=== PATIENT | male | born 1950 | race African-American/Black ===

== ENCOUNTER 2017-05-18 22:51 | Inpatient (IN) | payer OTHER ==
[~2017-05-18] VITALS: Ht 180.3 cm; Wt 88.1 kg
--- NOTE | ~2017-05-18 | CO ---
Unit #: [id number] #: [id number] Patient: BONILLA VAUGHAN [id number] [facility] [address]. [place], [place] [address] [id number] I MR#: [id number] NAME: BONILLA VAUGHAN ROOM: CIC3 Age: 66 Sex: M Admission Date: 05/19/2017 : 1950 Attending Physician: Elsa Arambula M.D. Primary Care Physician: Ezio Arambula M.D. Consultation Date: 05/19/2017 CONSULTATION REPORT PRIMARY CARE PHYSICIAN Ezio Arambula M.D. REASON FOR CONSULT Seizures. PATIENT IDENTIFICATION This is a 66-year-old male evaluated in room ICU 21 at [facility]. SOURCE OF INFORMATION Obtained from the medical record and prior evaluation. HISTORY OF PRESENT ILLNESS This is a 66-year-old, male with a past medical history of stroke and dementia with behavioral disturbance, substance abuse, who presents to [facility] with new onset seizures recurrent. He required Versed and intubation in the ER. At baseline, he is essentially nonverbal. He is intubated at this time, so I am unable to obtain history from the patient. According to the ER notes, [facility]. Here, he was having recurrent events. He required 10 mg of Versed and was intubated. He received 1 g of IV Keppra and 200 mg of IV Vimpat. He also received multiple milligrams of IV Ativan. He was started on continuous Keppra b.i.d. and Vimpat b.i.d. and admitted to the ICU. He is not currently seizing at this time. He is withdrawing from noxious stimuli. He opens his eyes. Moves all extremities, but does not follow commands. He does not appear to have any new focal findings, no dysconjugate gaze or gaze deviation. CT of the head without contrast done in the ER shows no acute intracranial abnormality with stable diffuse chronic changes and old infarcts in multiple areas. No change since 08/2016. There is increasing fluid opacification of the left mastoid air spaces. Chest x-ray shows a left lung base infiltrate. PAST MEDICAL HISTORY 1. Multiple strokes. The patient has been seen by Neurology in the past as recently as 08/2016 for subacute infarct in the left posterior cerebral artery territory. MRI of the brain from 08/2016 showed multifocal small to moderate size bilateral recent ischemic infarcts in the bilateral occipital lobes, left cerebellar hemisphere, in the conrado, and in the posterior frontal lobes bilaterally. Prior CT of the head without contrast shows areas of concern in the left temporal lobe. He was treated in 07/2016 as well by Neurology for altered mental status. 2. Dementia with behavioral disturbance. Unit #: [id number] #: [id number] Patient: BONILLA VAUGHAN 3. Hypertension. 4. Cocaine abuse in the past. 5. Delirium. 6. [facility] of the [facility]. 7. Superficial gastric ulceration in the past. 8. Dysphagia, status post PEG. ALLERGIES No known drug allergies. FAMILY HISTORY Unknown. SOCIAL HISTORY [facility] He is a wolf of the [facility]. He has a past history of drug abuse specifically cocaine. No known current drug use, tobacco use, or alcohol use. HOME MEDICATIONS As per med rec include; Lopressor, Catapres, Mucinex D, Pepcid AC, aspirin, Plavix, Feosol, Catapres, multivitamin, sertraline, milk of magnesia. REVIEW OF SYSTEMS Unable to obtain from the patient given his mental status and intubation. PHYSICAL EXAMINATION VITAL SIGNS: Temperature 99.1, pulse 92, respirations 18, blood pressure 138/94, repeat 174/101, oxygen saturation 100%. Height 5 feet 11 inches, weight 191 pounds, BMI 26. NEUROLOGIC: The patient is intubated. He is sedated at the time of evaluation on a Versed drip 4 mg/hour. He does open his eyes to stimulation and moves all extremities. He withdraws. He does not follow commands. At baseline, he is apparently nonverbal. Unable to assess speech or cognition further as he is intubated and sedated. Cranial nerve exam; he responds to threats in the primary visual amado. Eyes are conjugate without ptosis or nystagmus. Oculocephalic reflex was unremarkable for any abnormality. Unable to evaluate sensation of face and scalp or strength of muscles of facial expression. No asymmetry is seen. Head turning is unremarkable spontaneously. Neck is supple. Motor exam; the patient withdraws from noxious stimuli. Moves extremities spontaneously with stimulation. He appears to have decreased movement on the left side, some possible spasticity of the left upper extremity. Sensory exam; he withdraws from noxious stimuli. Gait and Romberg deferred. Reflexes, unable to elicit. Toes are equivocal. Coordination, unable to assess. DIAGNOSTIC STUDIES Please see above. LABORATORY RESULTS: Lactic acid 1.9 and 2.1. Urine tox screen positive for benzodiazepines, which he received in the ED. Urinalysis shows 3+ protein, 1 urobilinogen, 2 to 5 grain cast, negative for bacteria, 2 to 5 white cells. Culture not indicated. White blood cell count 11.3, hemoglobin 15.3, hematocrit 47.9, platelet count 156. Sodium 142, potassium 4, chloride 108, CO2 is 26, glucose 143, BUN 28, creatinine 1, estimated GFR 91.8, calcium 9.3, AST 35, ALT 42, alkaline phosphatase 113, total protein 8.8, albumin 4.4, alcohol less than 5. Initial troponin Unit #: [id number] #: [id number] Patient: BONILLA VAUGHAN 0.05. IMPRESSION 1. Recurrent seizures, clinically stable possibly secondary to prior strokes. He is not in status epilepticus. We will evaluate closely. At this time, nothing to suggest PROTECTIVE SIGNAL REPAIRER HELPER infection, but we will consider lumbar puncture if needed. He has very mild leukocytosis with a white count of 11.3, and no significantly elevated temperature. He has no meningismus. 2. Prior strokes. 3. Dementia. 4. Coronary artery disease. 5. Questionable aspiration pneumonia. PLAN We will continue Vimpat and Keppra. We will check an MRI of the brain per seizure protocol and we will follow up closely. Again, further plan and testing including lumbar puncture if needed or indicated as we go along at this time that is lower on the differential diagnosis given assessment and evaluation. Case discussed with Dr. Manzanares, who has seen the patient and agrees to the above. We will continue home medications including aspirin and Plavix. We will also look back and review prior records in and given his prior strokes, his workup was regarding anticoagulation versus antiplatelet therapy. Please call for any questions or issues. We thank you very much for allowing us to assist in the care of this patient. Dictated by... Jazmin S. Mio, A.Azucena Villalobos/jovani TD: 05/20/2017 12:35 JOB #: [id number] CONSULTATION REPORT Page 1 of 1 X Jazmin Lieberman APRN CONSULTATION REPORT
--- NOTE | ~2017-05-18 | CT71 ---
[facility] A Service of [facility] RADIOLOGY TEXT RESULTS PATIENT: BONILLA VAUGHAN [facility] : [birth year] UNIT #: [id number] AGE: [address]: Elsa Arambula MD SEX: M ORDER DR: [id number] [facility] [address] [place], [place] [address] [id number] I MR#: [id number] #: [id number] NAME: BONILLA VAUGHAN : 1950 SEX: M STUDY DATE/TIME: 05/18/2017 23:09 UNIT: [facility] ROOM: [facility] STUDY DESCRIPTION: CT Head Wo Contrast Attending Physician: Elsa Arambula M.D. Ordering Physician: Cody Ibrahim D.O. Primary Care Physician: Ezio Arambula M.D. MEDICAL IMAGING REPORT This report is preliminary unless electronic signature is present EXAM CT head, noncontrast, 05/18/2017 HISTORY 66-year-old male in the ED after a seizure tonight. Unresponsive/unconscious. TECHNIQUE CT examination of the head without IV contrast. This CT exam was performed with one or more of the following radiation dose reduction techniques: automatic exposure control, adjustment of mA and/or kV according to patient size, and iterative reconstruction. COMPARISON CT head, 08/12/2016 FINDINGS No acute intracranial abnormality is identified. Advanced generalized cerebral atrophy with disproportionate enlargement of the ventricles. Old cortical infarcts in the right frontal lobe and left occipital lobe and left cerebellum. Diffuse low-attenuation white matter changes are nonspecific but likely related to chronic small vessel disease. No evidence of intracranial hemorrhage, mass, mass effect, acute cerebral edema or progressive ventricular enlargement. There has been no significant change since the prior exam. Extensive fluid opacification of left mastoid airspaces, increasing since the prior study. IMPRESSION [facility] A Service of [facility] RADIOLOGY TEXT RESULTS PATIENT: BONILLA VAUGHAN [facility] : [birth year] UNIT #: [id number] AGE: [address]: Elsa Arambula MD SEX: M ORDER DR: 1. No acute intracranial abnormality is identified. 2. Stable diffuse chronic changes as noted above. 3. Old infarcts in the right frontal lobe, left occipital lobe and left cerebellum. 4. No change since 08/12/2016. 5. Increasing fluid opacification of left mastoid airspaces. Dictated by... Chino Medrano M.D. THIS IS AN ELECTRONICALLY VERIFIED REPORT Chino Medrano M.D. at 05/19/2017 10:02 PM Sunny TD: 05/19/2017 10:18 JOB #: [id number] MEDICAL IMAGING REPORT Page 1 of 1 COPY
--- NOTE | ~2017-05-18 | HP ---
Unit #: [id number] #: [id number] Patient: BONILLA VAUGHAN [id number] [address] [place], [place] [address] [id number] I MR#: [id number] NAME: BONILLA VAUGHAN ROOM: [facility] Age: 66 Sex: M Admission Date: 05/19/2017 : 1950 Attending Physician: Elsa Arambula M.D. Primary Care Physician: Ezio Arambula M.D. HISTORY AND PHYSICAL CHIEF COMPLAINT Seizures. HISTORY OF PRESENTING ILLNESS 66-year-old male with multiple medical problems who has had stroke in the past, is nonverbal, is intubated at this time. Most of the history was taken from ER notes. [facility] is a [facility] resident. He has a history of polysubstance abuse in the past. He has had multiple CVAs in the past. Patient had intractable seizures for 40 minutes or so in the [facility], was transferred to ER. Patient was intubated. Seizures are under control at this time. Patient was started on IV Keppra and IV Vimpat and was transferred to ICU. Patient is being evaluated in room 21. PAST MEDICAL HISTORY 1. History of multifocal strokes. 2. History of dysphagia, status post PEG. 3. History of superficial gastric ulceration in the past. 4. History of chronic anticoagulation therapy with Plavix and aspirin. 5. History of mood disorder and behavior disorder. 6. History of hypertension. ALLERGIES No known drug allergies. FAMILY HISTORY Unknown. SOCIAL HISTORY [facility] is a [facility] and he is a angel of [facility]. He has a past history of drug abuse. No history of alcohol use or tobacco use. REVIEW OF SYMPTOMS Not obtainable. PAST SURGICAL HISTORY What I know is PEG placement in the past. MEDICATIONS Home medications are: 1. Lopressor 100 mg twice a day. 2. Catapres 0.1 mg twice a day. 3. Mucinex p.r.n. 4. Pepcid 20 mg daily. 5. Aspirin 81 mg daily. Unit #: [id number] #: [id number] Patient: BONILLA VAUGHAN 6. Plavix 75 mg daily. 7. Feosol 325 mg daily. 8. Catapres one patch q.7 days. 9. Zoloft 50 mg daily. 10. Milk of mag 30 mL p.r.n. for constipation. PHYSICAL EXAMINATION GENERAL: The patient is evaluated again in ICU room 21. Patient is intubated. VITAL SIGNS: Blood pressure is 160/99, respiratory rate 18, pulse is 92, temperature 99.1. T-max is 100. Oxygen saturation of 100%. HEENT: Head is normocephalic. Eyes - pupils are small. NECK: Supple. CHEST: Fair air entry, decreased at the bases. A few crackles are heard. CVS: S1 and S2 positive. Regular rhythm. ABDOMEN: Soft. PEG tube is in place. No redness or discharge around the PEG tube. Bowel sounds are positive. EXTREMITIES: Negative edema. Pulses are palpable. Patient does have multiple contractures. SENIOR GOVERNMENT PROGRAM ANALYST: Patient is intubated and sedated at this time. DIAGNOSTIC STUDIES LABORATORY: Lab workup done so far shows troponin is less than 0.05, sodium 142, potassium 4.0, chloride 108, BUN 28, creatinine 1.0, ALT 42, alkaline phos. 113, alcohol less than 5. WBC 11.3, hemoglobin 15.3, hematocrit 47.9 and platelet count of 556. Urinalysis shows 3+ protein. Urine drug screen is positive for benzodiazepine. Lactic acid is 2.1. ASSESSMENT AND PLAN Patient is being admitted to Intensive Care Unit with diagnosis of: 1. New onset intractable seizures, stable at this time. 2. Acute hypoxic respiratory failure, on ventilator support. 3. Possible aspiration pneumonia. 4. History of multiple CVAs in the past, patient is nonverbal. 5. History of coronary artery disease, history of OH in September 2016. 6. History of polysubstance abuse. 7. History of hypertension. PLAN Admit to Intensive Care Unit. Patient is being started on IV Keppra and IV Vimpat. IV Ativan on p.r.n. basis. Dr. Manzanares has been consulted. Dr. Perry and Dr. Ceron will be consulted for vent management. Patient could have aspiration pneumonia. Patient is being started on IV Zosyn at this time. Sputum for gram stain and culture is being done. Blood cultures will be done. Urine culture has been sent. Tube feeds will be started. Home medications will be reviewed and adjusted. Dictated by Elsa Arambula M.D. Unit #: [id number] #: [id number] Patient: BONILLA VAUGHAN MISSAEL/petey TD: 05/19/2017 11:03 JOB #: [id number] HISTORY AND PHYSICAL Page 1 of 1 X Elsa Arambula MD X HISTORY AND PHYSICAL
--- NOTE | ~2017-05-18 | EKG ---
PATIENT: BONILLA VAUGHAN UNIT #: [id number] Ventricular Rate: 95 BPM Atrial Rate: 95 BPM P-R Interval: 168 ms QRS Duration: 88 ms Q-T Interval: 370 ms QTC Calculation(Bezet): 464 ms P [place]: 74 degrees Calculated R [place]: -51 degrees Calculated T [place]: 65 degrees Diagnosis Line: Normal sinus rhythm Diagnosis Line: Left axis deviation Diagnosis Line: Abnormal ECG Diagnosis Line: When compared with ECG of 15-AUG-2016 05:58, Diagnosis Line: QRS axis Shifted left Diagnosis Line: T wave inversion no longer evident in Inferior Diagnosis Line: leads Diagnosis Line: Confirmed by ELYSE AG MD ([id number]) on 05/19/2017 Diagnosis Line: 11:05:18 PM INTERPRETING MD: KIMBERLI NATH
--- NOTE | ~2017-05-18 | A ---
[facility] Nutrition Therapy DATE: 05/19/17 Patient: BONILLA VAUGHAN Physician: TAMIKA Address: [facility] Room/Bed: [address], Zip: [place] [address] Admit Date: 05/19/17 Date of : [birth year] Height: 5 11 Weight: 191 87 NUTRITIONAL ASSESSMENT: REASON: TF diet order Admitting dx: 66 y/o male admitted from [facility] with new onset seizure PMH: dysphagia s/p PEG, dementia, CVA, HTN, cocaine abuse, mood disorder No updated H&P available yet Anthropometrics: Ht: 71", Wt: 70.5 vs 87 kg (avg = 78.8 kg), BMI: 21.7 vs 26.8 (normal vs overweight) past weights: 67.5-79 kg 05/18 Labs: glucose 143, BUN 28, ALT 42 Meds: keppra, pepcid, versed, IV abx I/O & Bowel function: Last BM unknown, + PEG Skin Integrity: No significant issues, no edema Estimated Nutrition Needs: 7464-8875 kcals/day (22-27 kcals/kg average weights) 79-95 g protein/day (1-1.2 g/kg average weights) Fluids consistent with kcal needs or per MD Assessment: Chart reviewed, events noted. See admitting dx and PMH as stated above. Pt is now on 2L nasal cannula per RN. See conflicting weights above; average of weights used to estimate nutritional needs. RD previously assessed on 08/11/16; note reviewed. Current EN regimen at shelter is Isosource 1.5 @ 65 ml/hr. Equivalent formula here at [facility] is Osmolite. Pt does not have EN running at this time, see recs below. Of note, the patient is non-verbal and is therefore not appropriate for RD interview. During last admission pt was noted to be on pureed diet at shelter, however this was before his PEG was placed. It is not clear whether he is able to take any food PO at this time, but I believe he is now NPO at shelter based on the above EN regimen. Will follow. Dx: Inadequate energy intake r/t nutrition not yet initiated AEB NPO, need for EN. Intervention: EN recs as stated below Monitoring, Evaluation and Goals: 1. EN consistent with estimated nutritional needs. [facility] Nutrition Therapy DATE: 05/19/17 Patient: BONILLA VAUGHAN Physician: TAMIKA Address: [facility] Room/Bed: [facility] [facility], Zip: [place] [address] Admit Date: 05/19/17 Date of : [birth year] Height: 5 11 Weight: 191 87 2. Promote regular BM's. Monitor: per protocol, criteria to determine if above goals met Recommendations: 1. Once medically feasible start enteral nutrition via PEG with Osmolite 1.5 @ 20 ml/hr and increase by 10 ml q 4 hours until goal rate of 60 ml/hr is reached, to provide 1440 ml, 2160 kcals, 90 g protein and 1094 ml water. Once at goal rate flush with 175 ml free water q 4 hours or per MD. This enteral nutrition regimen will provide 100% of the patients estimated nutritional needs. 2. PO diet per ANIMAL HUSBANDRY TECHNICIAN only if appropriate, unless patient is normally NPO at the shelter. 3. Please obtain an accurate weight; weight differed by 17 kg between yesterday and today per [employer] weights. RD will follow hospital course Moderate nutrition risk Respectfully, Lisa Mtz, [facility], LD Food and Nutritional Services [facility] cc: client file
--- NOTE | ~2017-05-18 | DS ---
Unit #: [id number] #: [id number] Patient: BONILLA VAUGHAN [id number] [address] [place], [place] [address] [id number] I MR#: [id number] NAME: BONILLA VAUGHAN ROOM: [facility] Age: 66 Sex: M Admission Date: 05/19/2017 : 1950 Discharge Date: 05/25/2017 Attending Physician: Elsa Arambula M.D. Primary Care Physician: Ezio Arambula M.D. DISCHARGE SUMMARY FINAL DIAGNOSES 1. Acute hypoxic respiratory failure. 2. Klebsiella pneumoniae. 3. C-diff infection. 4. History of CVA. 5. History of seizure disorder. 6. Hypertension. 7. Chronic anticoagulation therapy with Plavix and aspirin. 8. Mood disorder and behavior disorder. 9. History of dysphagia, status post PEG. 10. History of cocaine abuse in the past. 11. Dementia. CONSULTANTS Dr. Stefany Ceron from pulmonary services. Dr. Manzanares from neurology services. DIAGNOSTIC DATA LABORATORY: TSH 2.46, troponin 0.04. Blood culture done on 05/19/2017 is negative. Sodium 141, potassium 3.6, chloride 106, BUN 19, creatinine 0.8, liver enzymes are normal. CBC shows white blood cell count 6.9, hemoglobin 12.3, hematocrit 37.9, and platelets 143. C-diff is positive. One blood culture on 05/19/2017 showed diphtheroid most likely skin contaminant. Sputum culture positive for Klebsiella pneumoniae. IMAGING: Significant radiological studies done in the hospital were CT scan of the head without contrast on admission which shows no acute intracranial abnormality identified. Advanced generalized cerebral atrophy. Old cortical infarct. Chest x-ray showed left lung base infiltrate. MRI of the brain shows atrophy with extensive chronic ischemic changes and multiple old infarcts. All stable since the previous exam. DISCHARGE MEDICATIONS 1. Vimpat 100 mg q.12 h. 2. Keppra 500 mg q.12 h. 3. Zoloft 15 mg daily. 4. Lopressor 100 mg q.12 h. 5. Milk of Magnesia 30 ml daily p.r.n. constipation. 6. Omnicef 300 mg b.i.d. until 05/28/2017. 7. Catapres 0.1 mg per G tube b.i.d. 8. Zestril 20 mg daily. Unit #: [id number] #: [id number] Patient: BONILLA VAUGHAN 9. Ferrous sulfate 325 mg daily. 10. Metronidazole 500 mg t.i.d. 11. Pepcid 20 mg daily. 12. Florastor 250 mg b.i.d. 13. Multivitamin daily. 14. Aspirin 81 mg daily. 15. Plavix 75 mg daily. Please note the patient will need Metronidazole to be continued for two weeks from the last day of antibiotic, Omnicef, which is 05/28/2017. HOSPITAL COURSE Mr. Vaughan is a 66-year-old male who is a resident [facility]. He has had multiple admissions. Came because the patient had intractable seizures for 40 minutes or so in the detention. Was transferred to ER. The patient was admitted to the ICU. He was intubated. The patient was seen by Dr. Manzanares from neurology services. Most likely this is secondary to prior stroke. The patient was started on Keppra and Vimpat and that will need to be continued. The patient may need an appointment with neurologist as outpatient. The patient is stable on these medications at this time. The patient also had acute hypoxic respiratory failure and pneumonia was diagnosed. Dr. Ceron was consulted. The patient was stated on IV antibiotics. These antibiotics have been changed to p.o. The patient's sputum culture grew Klebsiella pneumoniae. The patient will continue Omnicef for three more days or so. The patient was also diagnosed with c-diff infection. Started on Flagyl and that needs to be continued for two weeks after the last dose of Omnicef. The patient is stable. He is being discharged back to the detention in stable condition. PHYSICAL EXAMINATION VITALS: On discharge, blood pressure is 162/93, respiratory rate 18, pulse 68, temperature 98.9, oxygen saturation 96%. CHEST: Decreased air entry bilaterally. HEART: S1 and S2 positive. Regular rhythm. ABDOMEN: Soft. EXTREMITIES: Edema trace. The patient is awake. DISCHARGE INSTRUCTIONS 1. The patient is being discharged to the detention in stable condition. 2. Medication as per medication reconciliation. 3. Dr. Gu to follow the patient at the detention. 4. Continue Flagyl for two weeks after completing the course of antibiotic, Omnicef. Dictated by... Azucena Hampton/gz TD: 05/25/2017 13:34 JOB #: [id number] Unit #: [id number] #: [id number] Patient: BONILLA VAUGHAN DISCHARGE SUMMARY Page 1 of 1 X Elsa Arambula MD X DISCHARGE SUMMARY
--- NOTE | ~2017-05-18 | MR17 ---
[facility] A Service of [facility] RADIOLOGY TEXT RESULTS PATIENT: BONILLA VAUGHAN LOCATION: [address] : [birth year] UNIT #: [id number] AGE: [address]: Elsa Arambula MD SEX: M ORDER DR: [id number] [facility] [address] [facility]. [place], [place] [address] [id number] I MR#: [id number] Acc #: [id number] NAME: BONILLA VAUGHAN : 1950 SEX: M STUDY DATE/TIME: 05/19/2017 16:52 UNIT: [facility] ROOM: [facility] STUDY DESCRIPTION: MR Brain WWo Contrast Attending Physician: Elsa Arambula M.D. Ordering Physician: Elsa Arambula M.D. Primary Care Physician: Ezio Arambula M.D. MRI CENTER REPORT This report is preliminary unless electronic signature is present. EXAM MRI with and without contrast. COMPARISON 08/13/2016. HISTORY New onset of seizure in the care home. History of chronic dementia. Multiple strokes in the past. Seizures of acute onset recently. TECHNIQUE Multiplanar imaging of the brain was performed with without contrast. 18 mL of MultiHance was used. FINDINGS On diffusion weighted images there is no evidence of abnormal restricted diffusion to suggest a recent infarct. The routine brain images show atrophy with extensive periventricular chronic ischemic disease. There is no evidence of mass lesion, hemorrhage or edema. No abnormal enhancement is seen on the postcontrast images. Extraaxial structures are remarkable for bilateral mastoid inflammatory disease much worse on the left than on the right. This shows worsening on both sides since the previous MRI. IMPRESSION 1. Atrophy with extensive chronic ischemic changes and multiple old infarct, all stable since the previous exam. No evidence of recent infarct, mass lesion or hemorrhage. 2. Bilateral mastoid air cell inflammatory disease, left worse than right, with both sides showing worsening since the previous scan in 2016. Dictated by... Chris Pendleton M.D. [facility] A Service of [facility] RADIOLOGY TEXT RESULTS PATIENT: BONILLA VAUGHAN LOCATION: [facility]3-21 : 52 UNIT #: [id number] AGE: [address]: Elsa Arambula MD SEX: M ORDER DR: THIS IS AN ELECTRONICALLY VERIFIED REPORT Chris Pendleton M.D. at 05/20/2017 3:03 PM RLLeah/john TD: 05/20/2017 10:41 JOB #: [id number] MRI CENTER REPORT Page 1 of 1 COPY
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
--- NOTE | ~2017-05-18 | CR72 ---
[facility] A Service of [facility] RADIOLOGY TEXT RESULTS PATIENT: BONILLA VAUGHAN [facility] [birth year] UNIT #: [id number] AGE: [address]: Elsa Arambula MD SEX: M ORDER DR: [id number] [facility] [address] [facility]. [place], [place] [address] [id number] I MR#: [id number] Acc #: [id number] NAME: BONILLA VAUGHAN : 1950 SEX: M STUDY DATE/TIME: 05/18/2017 23:49 UNIT: [facility] ROOM: [facility] STUDY DESCRIPTION: CR Chest Single View Portable Attending Physician: Elsa Arambula M.D. Ordering Physician: Cody Ibrahim D.O. Primary Care Physician: Ezio Arambula M.D. MEDICAL IMAGING REPORT This report is preliminary unless electronic signature is present EXAM Chest x-ray, 05/18/2017. HISTORY 66-year-old male in the ED with status epilepticus. New onset seizure today. Intubated and unresponsive. TECHNIQUE AP portable chest x-ray. FINDINGS Endotracheal tube in good position with tip about 5 cm above the singh in the mid thoracic trachea. Dense infiltrate in the left lower lobe. Given the history, aspiration pneumonitis is a consideration. Remaining portions of both lungs are clear. Shallow lung expansion. Heart size and pulmonary vascularity are normal. Old healed left rib fractures. IMPRESSION 1. ETT in good position. 2. Left lung base infiltrate. Dictated by... Chino Medrano M.D. THIS IS AN ELECTRONICALLY VERIFIED REPORT Chino Medrano M.D. at 05/19/2017 10:02 PM RGW/katharina TD: 05/19/2017 10:32 [facility] A Service of [facility] RADIOLOGY TEXT RESULTS PATIENT: BONILLA VAUGHAN [facility] UNIT #: [id number] AGE: [address]: Elsa Arambula MD SEX: M ORDER DR: JOB #: [id number] MEDICAL IMAGING REPORT Page 1 of 1 COPY
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
--- NOTE | ~2017-05-18 | EKG ---
PATIENT: BONILLA VAUGHAN UNIT #: [id number] Ventricular Rate: 63 BPM Atrial Rate: 63 BPM P-R Interval: 194 ms QRS Duration: 82 ms Q-T Interval: 432 ms QTC Calculation(Bezet): 442 ms P [place]: 44 degrees Calculated R [place]: -10 degrees Calculated T [place]: -15 degrees Diagnosis Line: Normal sinus rhythm Diagnosis Line: Nonspecific T wave abnormality Diagnosis Line: Abnormal ECG Diagnosis Line: No previous ECGs available Diagnosis Line: Confirmed by NASIR HULL MD ([id number]) on Diagnosis Line: 05/25/2017 3:30:48 PM INTERPRETING MD: VALDO
[~2017-05-18 22:51] MED LIST: ASPIRIN EC81 M1 PO; CLONIDINE1 EAC1 TD; CLOPIDOGREL BIS75 MG PO; COGENTIN1 M1 PO; DEPAKOTE125 MG PO; FAMOTIDINE PO; HALDOL PO; LATUDA20 MG PO; LIPITOR40 MG PO; LOPRESSOR PO; NORVASC PO; NORVASC2.5 MG PO; PROSTAT AWC PO; TYL325 PO; TYLENOL325 M1 PO; [UNRECOGNIZED DRUG - OTHER] PO
[2017-05-18] MEDS ORDERED: LOPRESSOR PO (23:15)
[2017-05-18] MEDS ORDERED: CATAPRES0.1 MG PO (23:17)
[2017-05-18] MEDS ORDERED: PEPCID AC20 M2 PO (23:17)
[2017-05-18] MEDS ORDERED: MUCINEX D ER T1 EAC1 PO (23:17)
[2017-05-18] MEDS ORDERED: ASPIRIN81 MG PO (23:17)
[2017-05-18] MEDS ORDERED: CLOPIDOGREL75 MG PO (23:18)
[2017-05-18] MEDS ORDERED: FEROSUL220 MG/5 M PO (23:18)
[2017-05-18] MEDS ORDERED: ZOLOFT50 MG PO (23:19)
[2017-05-18] MEDS ORDERED: CENTRAM-CA9 MG/15 ML PO (23:19)
[2017-05-18] MEDS ORDERED: MILK OF MAGNESIA PO (23:19)
[2017-05-18] MEDS ORDERED: CATAPRES-TTS-30.3 M1 TD (23:19)
[2017-05-18 23:30] LABS: POC - CKMB 4.1 ng/mL (0.0-7.9); POC - TROPONIN 0.05 ng/mL (<=0.05)
[2017-05-18 23:32] LABS: ARTERIAL BLD GAS O2 SATURATION 97.6 % (90.0-100.0); ARTERIAL BLOOD GAS CARBOXY HB 0.8 %sat (0.0-9.0); ARTERIAL BLOOD GAS HCO3 26.2 mmol/L; ARTERIAL BLOOD GAS MET HB 0.6 %sat (0.0-2.0); ARTERIAL BLOOD GAS pH 7.236 (7.350-7.450)
[2017-05-18 23:33] LABS: ARTERIAL BLOOD GAS ALLEN TEST NORMAL; ARTERIAL BLOOD GAS ART SITE LEFT RADIAL; ARTERIAL BLOOD GAS DELIVERY VENT; ARTERIAL BLOOD GAS PCO2 61.7 mmHg (35.0-45.0); ARTERIAL BLOOD GAS VENT MODE AC; ARTERIAL DRAW? YES
[2017-05-18 23:48] LABS: ALBUMIN SERUM 4.4 g/dL (3.5-5.0); ALCOHOL BLOOD <5 mg/dL (0); ALKALINE PHOSPHATASE 113 U/L (32-92); ALT (SGPT) 42 U/L (10-40); AST (SGOT) 35 U/L (10-42); BILIRUBIN, DIRECT 0.2 mg/dL (0.0-0.2); BILIRUBIN,INDIRECT 1.1 mg/dL (0.0-0.9); BILIRUBIN,TOTAL 1.3 mg/dL (0.2-2.0); BLOOD UREA NITROGEN 28 mg/dL (9-23); CALCIUM SERUM 9.3 mg/dL (8.4-10.2); CARBON DIOXIDE 26 mmol/L (22-31); CHLORIDE 108 mmol/L (100-111); GLOM FILT RATE Estimated 91.8 mL/min (>60); GLUCOSE FASTING 143 mg/dL (70-110); PROTEIN TOTAL SERUM 8.8 g/dL (6.0-8.3); SODIUM 142 mmol/L (135-145)
[2017-05-18 23:51] LABS: BASOPHIL# 0.1 X10e3 (0-0.3); EOSINOPHIL# 0.3 X10e3 (0-0.7); EOSINOPHIL% 2.3 % (0.0-7.0); HEMATOCRIT 47.9 % (38.0-50.0); HEMOGLOBIN 15.3 gm/dL (13.0-16.0); LYMPHOCYTE# 3.7 X10e3 (1.0-3.5); LYMPHOCYTE% 32.8 % (17.0-45.0); MEAN CELL VOLUME 84.2 FL (83-96); MEAN CORPUSCULAR HEMOGLOBIN 26.9 PG (28-34); MEAN CORPUSCULAR HGB CONC 31.9 g/dL (30-36); MEAN PLATELET VOLUME 10.7 FL (6.5-11.5); MONOCYTE# 0.7 X10e3 (0-1.0); MONOCYTE% 5.9 % (3.0-12.0); NEUTROPHIL# 6.6 X10e3 (1.5-7.1); RED BLOOD COUNT 5.69 X10e (3.90-5.60); RED CELL DISTRIBUTION WIDTH 16.5 % (11.0-15.5); WHITE BLOOD COUNT 11.3 X10e3 (4.0-10.5)
[2017-05-18 23:52] LABS: DIFF IND NO; PLATELET COUNT 156 X10e3 (140-420)
[2017-05-19 00:44] LABS: URINE SOURCE CLEAN CATCH
[2017-05-19 01:06] LABS: URINE APPEARANCE CLOUDY; URINE BILIRUBIN NEG (NEG); URINE BLOOD TRACE (NEG); URINE COLOR YELLOW; URINE GLUCOSE NEG (NEG); URINE KETONE NEG (NEG); URINE LEUKOCYTE ESTERASE NEG (NEG); URINE NITRATE NEG (NEG); URINE PROTEIN 3+ (NEG)
[2017-05-19 01:09] LABS: URBCS1 AUWI 0-2 /[HPF] (0-2); URINE BACTERIA AUWI NEG (NEGATIVE); URINE SQUAMOUS EPITHELIAL CELL MOD /[HPF]
[2017-05-19 01:20] LABS: CULTURE INDICATED? NO
[2017-05-19 01:27] LABS: AMPHETAMINE NEG (NEG); BARBITURATES NEG (NEG); BENZODIAZEPINES POS (NEG); COCAINE NEG (NEG); MARIJUANA NEG (NEG); OPIATES NEG (NEG); TRICYCLIC ANTIDEPRESSANTS NEG (NEG); U METHADONE NEG (NEG)
[2017-05-19 05:56] LABS: ARTERIAL BLOOD GAS CARBOXY HB 0.5 %sat (0.0-9.0); ARTERIAL BLOOD GAS HCO3 23.6 mmol/L; ARTERIAL BLOOD GAS MET HB 0.6 %sat (0.0-2.0); ARTERIAL BLOOD GAS PCO2 38.8 mmHg (35.0-45.0); ARTERIAL BLOOD GAS pH 7.393 (7.350-7.450)
[2017-05-19 12:08] LABS: ARTERIAL BLOOD GAS ALLEN TEST NORMAL; ARTERIAL BLOOD GAS ART SITE RIGHT RADIAL; ARTERIAL DRAW? YES
[2017-05-19 12:09] LABS: ARTERIAL BLOOD GAS DELIVERY NASAL CANNULA
[2017-05-20 04:09] LABS: ARTERIAL BLD GAS O2 SATURATION 97.9 % (90.0-100.0); ARTERIAL BLOOD GAS CARBOXY HB 0.7 %sat (0.0-9.0); ARTERIAL BLOOD GAS HCO3 24.4 mmol/L; ARTERIAL BLOOD GAS MET HB 0.6 %sat (0.0-2.0); ARTERIAL BLOOD GAS PCO2 37.7 mmHg (35.0-45.0); ARTERIAL BLOOD GAS pH 7.418 (7.350-7.450)
[2017-05-20 04:11] LABS: ARTERIAL BLOOD GAS ALLEN TEST NORMAL; ARTERIAL BLOOD GAS ART SITE RIGHT RADIAL; ARTERIAL BLOOD GAS DELIVERY VENT; ARTERIAL BLOOD GAS VENT MODE AC; ARTERIAL DRAW? YES
[2017-05-20 06:00] LABS: BASOPHIL% 0.4 % (0-2.5); EOSINOPHIL# 0.1 X10e3 (0-0.7); EOSINOPHIL% 0.6 % (0.0-7.0); HEMATOCRIT 39.3 % (38.0-50.0); LYMPHOCYTE# 1.4 X10e3 (1.0-3.5); LYMPHOCYTE% 13.9 % (17.0-45.0); MEAN CELL VOLUME 82.9 FL (83-96); MEAN CORPUSCULAR HEMOGLOBIN 27.1 PG (28-34); MEAN CORPUSCULAR HGB CONC 32.7 g/dL (30-36); MEAN PLATELET VOLUME 11.1 FL (6.5-11.5); MONOCYTE# 0.7 X10e3 (0-1.0); MONOCYTE% 6.8 % (3.0-12.0); NEUTROPHIL# 7.7 X10e3 (1.5-7.1); NEUTROPHIL% 78.3 % (40-75); PLATELET COUNT 102 X10e3 (140-420); RED BLOOD COUNT 4.75 X10e (3.90-5.60); RED CELL DISTRIBUTION WIDTH 16.4 % (11.0-15.5); WHITE BLOOD COUNT 9.9 X10e3 (4.0-10.5)
[2017-05-20 06:01] LABS: DIFF IND NO; HEMOGLOBIN 12.9 gm/dL (13.0-16.0)
[2017-05-20 06:48] LABS: BUN/CREATININE RATIO 20.9; CALCIUM SERUM 8.9 mg/dL (8.4-10.2); CREATININE SERUM 1.1 mg/dL (0.6-1.4); GLOM FILT RATE Estimated 81.8 mL/min (>60); POTASSIUM 3.5 mmol/L (3.5-5.1)
[2017-05-22 04:55] LABS: BASOPHIL% 0.8 % (0-2.5); DIFF IND NO; EOSINOPHIL# 0.2 X10e3 (0-0.7); EOSINOPHIL% 3.7 % (0.0-7.0); HEMATOCRIT 35.9 % (38.0-50.0); HEMOGLOBIN 11.6 gm/dL (13.0-16.0); LYMPHOCYTE# 1.4 X10e3 (1.0-3.5); LYMPHOCYTE% 24.3 % (17.0-45.0); MEAN CELL VOLUME 82.5 FL (83-96); MEAN CORPUSCULAR HEMOGLOBIN 26.7 PG (28-34); MEAN CORPUSCULAR HGB CONC 32.4 g/dL (30-36); MEAN PLATELET VOLUME 11.1 FL (6.5-11.5); MONOCYTE# 0.5 X10e3 (0-1.0); MONOCYTE% 9.6 % (3.0-12.0); NEUTROPHIL# 3.5 X10e3 (1.5-7.1); NEUTROPHIL% 61.6 % (40-75); PLATELET COUNT 113 X10e3 (140-420); RED BLOOD COUNT 4.35 X10e (3.90-5.60); RED CELL DISTRIBUTION WIDTH 15.9 % (11.0-15.5); WHITE BLOOD COUNT 5.7 X10e3 (4.0-10.5)
[2017-05-22 05:29] LABS: CALCIUM SERUM 8.6 mg/dL (8.4-10.2); CREATININE SERUM 0.8 mg/dL (0.6-1.4); GLOM FILT RATE Estimated 109.5 mL/min (>60); POTASSIUM 3.6 mmol/L (3.5-5.1)
[2017-05-23 05:23] LABS: HEMATOCRIT 36.8 % (38.0-50.0); HEMOGLOBIN 12.1 gm/dL (13.0-16.0); MEAN CELL VOLUME 82.2 FL (83-96); MEAN CORPUSCULAR HEMOGLOBIN 27.1 PG (28-34); MEAN CORPUSCULAR HGB CONC 32.9 g/dL (30-36); MEAN PLATELET VOLUME 11.2 FL (6.5-11.5); RED BLOOD COUNT 4.47 X10e (3.90-5.60); RED CELL DISTRIBUTION WIDTH 15.7 % (11.0-15.5); WHITE BLOOD COUNT 6.4 X10e3 (4.0-10.5)
[2017-05-24 06:11] LABS: BASOPHIL# 0.1 X10e3 (0-0.3); BASOPHIL% 1.1 % (0-2.5); EOSINOPHIL# 0.2 X10e3 (0-0.7); EOSINOPHIL% 3.5 % (0.0-7.0); HEMATOCRIT 37.9 % (38.0-50.0); HEMOGLOBIN 12.3 gm/dL (13.0-16.0); LYMPHOCYTE# 1.4 X10e3 (1.0-3.5); LYMPHOCYTE% 19.7 % (17.0-45.0); MEAN CELL VOLUME 82.2 FL (83-96); MEAN CORPUSCULAR HEMOGLOBIN 26.7 PG (28-34); MEAN CORPUSCULAR HGB CONC 32.5 g/dL (30-36); MEAN PLATELET VOLUME 10.8 FL (6.5-11.5); MONOCYTE# 0.6 X10e3 (0-1.0); MONOCYTE% 8.6 % (3.0-12.0); NEUTROPHIL# 4.6 X10e3 (1.5-7.1); NEUTROPHIL% 67.1 % (40-75); PLATELET COUNT 143 X10e3 (140-420); RED BLOOD COUNT 4.62 X10e (3.90-5.60); RED CELL DISTRIBUTION WIDTH 15.9 % (11.0-15.5); WHITE BLOOD COUNT 6.9 X10e3 (4.0-10.5)
[2017-05-24 06:22] LABS: DIFF IND NO
[2017-05-24 06:36] LABS: ALBUMIN SERUM 3.5 g/dL (3.5-5.0); BILIRUBIN,TOTAL 0.7 mg/dL (0.2-2.0); BUN/CREATININE RATIO 23.75; CREATININE SERUM 0.8 mg/dL (0.6-1.4); GLOM FILT RATE Estimated 109.5 mL/min (>60); POTASSIUM 3.6 mmol/L (3.5-5.1); PROTEIN TOTAL SERUM 7.2 g/dL (6.0-8.3)
[2017-05-25 13:52] LABS: BUN/CREATININE RATIO 18.88; CALCIUM SERUM 8.6 mg/dL (8.4-10.2); CREATININE SERUM 0.9 mg/dL (0.6-1.4); GLOM FILT RATE Estimated 104.2 mL/min (>60); MAGNESIUM 2.1 mg/dL (1.6-3.0); POTASSIUM 3.9 mmol/L (3.5-5.1)
== END 2017-05-25 20:44 | DRG 871 ==
LOC: CED 22:51 → CEDOF 05-19 01:20 → CICCU3 05-19 01:20 → CED 05-19 01:23 → CEDOF 05-19 01:23 → CICCU3 05-19 04:58 → CEDOF 05-19 04:58 → C3A PCU 05-21 21:56
PROVIDERS: Emergency Medicine; Internal Medicine; Physician Assistant Medical
PROC: 0BH17EZ Insertion of Endotracheal Airway into Trachea, Via Natural or Artificial Opening (ICD-10-PCS; principal; 2017-05-19)
PROC: 5A1945Z Respiratory Ventilation, 24-96 Consecutive Hours (ICD-10-PCS; 2017-05-19)
PROC: 05HM33Z Insertion of Infusion Device into Right Internal Jugular Vein, Percutaneous Approach (ICD-10-PCS; 2017-05-19)
PROC: B543ZZA Ultrasonography of Right Jugular Veins, Guidance (ICD-10-PCS; 2017-05-19)
DX: A41.89 Other specified sepsis (principal); J96.01 Acute respiratory failure with hypoxia; J15.0 Pneumonia due to Klebsiella pneumoniae; A04.7 Enterocolitis due to Clostridium difficile; F03.90 Unspecified dementia, unspecified severity, without behavioral disturbance, psychotic disturbance, mood disturbance, and anxiety; E46 Unspecified protein-calorie malnutrition; B96.1 Klebsiella pneumoniae [K. pneumoniae] as the cause of diseases classified elsewhere; G40.901 Epilepsy, unspecified, not intractable, with status epilepticus; Z86.73 Personal history of transient ischemic attack (TIA), and cerebral infarction without residual deficits; I10 Essential (primary) hypertension; Z79.01 Long term (current) use of anticoagulants; Z79.82 Long term (current) use of aspirin; F39 Unspecified mood [affective] disorder; Z68.21 Body mass index [BMI] 21.0-21.9, adult
CPT/HCPCS: 31500; 36415; 36556; 36600; 70450; 70553; 71010; 80048; 80053; 80076; 80307; 81003; 82553; 82803; 82947; 83605; 83735; 84443; 84484; 85025; 85027; 87040; 87070; 87077; 87186; 87205; 87493; 93005; 94002; 94003; 94760; 96374; 96375; 96376; 99291; A9577; C9113; C9254; G0480; J0330; J0696; J1650; J1953; J2060; J2250; J2543; J2550

== ENCOUNTER 2017-06-13 04:13 | Emergency (ER) | payer OTHER ==
[~2017-06-13] VITALS: Ht 177.8 cm; Wt 88.1 kg
--- NOTE | ~2017-06-13 | EKG ---
PATIENT: BONILLA VAUGHAN UNIT #: [id number] Ventricular Rate: 81 BPM Atrial Rate: 81 BPM P-R Interval: 192 ms QRS Duration: 92 ms Q-T Interval: 390 ms QTC Calculation(Bezet): 453 ms P [place]: 45 degrees Calculated R [place]: -14 degrees Calculated T [place]: 26 degrees Diagnosis Line: Normal sinus rhythm Diagnosis Line: Normal ECG Diagnosis Line: When compared with ECG of 25-MAY-2017 08:52, Diagnosis Line: Criteria for Inferior infarct are no longer Diagnosis Line: Present Diagnosis Line: Confirmed by LIZY MARTINEZ MD ([id number]) on 06/14/2017 Diagnosis Line: 2:01:15 PM INTERPRETING MD: JUAN NATH
--- NOTE | ~2017-06-13 | CR72 ---
[facility] A Service of [facility] RADIOLOGY TEXT RESULTS PATIENT: BONILLA VAUGHAN LOCATION: [facility] : 54 UNIT #: [id number] AGE: [address]: Chris Naylor MD SEX: M ORDER DR: [id number] [facility] [address] [place], [place] [address] [id number] E MR#: [id number] Acc #: [id number] NAME: BONILLA VAUGHAN : 1950 SEX: M STUDY DATE/TIME: 06/13/2017 5:55 UNIT: [facility] ROOM: STUDY DESCRIPTION: CR Chest Single View Portable Attending Physician: Chris Naylor M.D. Ordering Physician: Chris Naylor M.D. Primary Care Physician: Ezio Arambula M.D. MEDICAL IMAGING REPORT This report is preliminary unless electronic signature is present EXAM Portable chest INDICATIONS Shortness of air today. PROCEDURE Frontal view chest. COMPARISON STUDIES 05/18/2017 FINDINGS Stable cardiomegaly. No new dense consolidation. Low lung volumes. No visible pleural fluid or pneumothorax. IMPRESSION Low lung volumes. No dense consolidation. Dictated by... George Diaz M.D. THIS IS AN ELECTRONICALLY VERIFIED REPORT George Diaz M.D. at 06/14/2017 10:04 PM MARTINA/makenzie TD: 06/13/2017 14:33 JOB #: [id number] MEDICAL IMAGING REPORT Page 1 of 1 COPY
[~2017-06-13 04:13] MED LIST changes: +ASPIRIN81 MG PO; +CATAPRES-TTS-30.3 M1 TD; +CATAPRES0.1 MG PO; +CENTRAM-CA9 MG/15 ML PO; +CLOPIDOGREL75 MG PO; +FEROSUL220 MG/5 M PO; +MILK OF MAGNESIA PO; +MUCINEX D ER T1 EAC1 PO; +PEPCID AC20 M2 PO; +ZOLOFT50 MG PO
[2017-06-13 05:27] LABS: BASOPHIL# 0.1 X10e3 (0-0.3); BASOPHIL% 1.3 % (0-2.5); EOSINOPHIL# 0.1 X10e3 (0-0.7); EOSINOPHIL% 1.7 % (0.0-7.0); HEMATOCRIT 43.9 % (38.0-50.0); HEMOGLOBIN 13.9 gm/dL (13.0-16.0); LYMPHOCYTE# 1.3 X10e3 (1.0-3.5); LYMPHOCYTE% 20.8 % (17.0-45.0); MEAN CELL VOLUME 85.3 FL (83-96); MEAN CORPUSCULAR HEMOGLOBIN 27.1 PG (28-34); MEAN CORPUSCULAR HGB CONC 31.8 g/dL (30-36); MEAN PLATELET VOLUME 10.4 FL (6.5-11.5); MONOCYTE# 0.6 X10e3 (0-1.0); MONOCYTE% 9.1 % (3.0-12.0); NEUTROPHIL# 4.2 X10e3 (1.5-7.1); NEUTROPHIL% 67.1 % (40-75); PLATELET COUNT 178 X10e3 (140-420); RED BLOOD COUNT 5.14 X10e (3.90-5.60); RED CELL DISTRIBUTION WIDTH 16.6 % (11.0-15.5); WHITE BLOOD COUNT 6.3 X10e3 (4.0-10.5)
[2017-06-13 05:29] LABS: DIFF IND NO
[2017-06-13 05:44] LABS: INR 1.2; PARTIAL THROMBOPLASTIN TIME 26.5 SECONDS (23.5-31.3); PROTHROMBIN TIME (PATIENT) 12.7 SECONDS (10.0-11.7)
[2017-06-13 06:05] LABS: ALBUMIN SERUM 3.7 g/dL (3.5-5.0); BILIRUBIN,TOTAL 0.8 mg/dL (0.2-2.0); BUN/CREATININE RATIO 28.88; CREATININE SERUM 0.9 mg/dL (0.6-1.4); GLOM FILT RATE Estimated 104.2 mL/min (>60); PROTEIN TOTAL SERUM 7.5 g/dL (6.0-8.3)
== END 2017-06-13 07:23 | disposition home or self-care (01) ==
LOC: CED 04:13
PROVIDERS: Emergency Medicine
DX: R11.10 Vomiting, unspecified (principal); Z86.73 Personal history of transient ischemic attack (TIA), and cerebral infarction without residual deficits; Z79.899 Other long term (current) drug therapy
CPT/HCPCS: 36415; 71010; 80053; 85025; 85610; 85730; 86850; 86900; 86901; 93005; 99285

== ENCOUNTER 2017-06-27 01:57 | Emergency (ER) | payer OTHER ==
--- NOTE | ~2017-06-27 | CR72 ---
[facility] A Service of [facility] RADIOLOGY TEXT RESULTS PATIENT: BONILLA VAUGHAN LOCATION: [facility] : 54 UNIT #: [id number] AGE: [address]: Chris Nalyor MD SEX: M ORDER DR: [id number] [facility] [address] [place], [place] [address] [id number] E MR#: [id number] Acc #: [id number] NAME: BONILLA VAUGHAN : 1950 SEX: M STUDY DATE/TIME: 06/27/2017 2:40 UNIT: [facility] ROOM: STUDY DESCRIPTION: CR Chest Single View Portable Attending Physician: Chris Naylor M.D. Ordering Physician: Chris Naylor M.D. Primary Care Physician: Ezio Arambula M.D. MEDICAL IMAGING REPORT This report is preliminary unless electronic signature is present EXAM Chest x-ray, 06/27/2017 HISTORY 66-year-old male in the ED complaining of shortness of air and weakness beginning earlier today. TECHNIQUE AP portable chest x-ray. COMPARISON Chest x-ray 06/13/2017, 05/18/2017 and 08/16/2016. FINDINGS Wibm-ja-xnrymogf cardiomegaly is stable. Diffusely prominent and indistinct vascular markings are increased since the recent study of 06/13/2017, although exaggerated by shallow lung expansion. Mild vascular congestion is suspected. There is no airspace consolidation or visible pleural effusion. Old healed left rib fractures. Benign calcified lymph nodes in the pulmonary susan and middle mediastinum. Stable tortuous thoracic aorta. IMPRESSION Cardiomegaly with probable mild vascular congestion. Dictated by... Chino Medrano M.D. THIS IS AN ELECTRONICALLY VERIFIED REPORT Chino Medrano M.D. at 06/28/2017 6:02 AM JONAH/neelam [facility] A Service of [facility] RADIOLOGY TEXT RESULTS PATIENT: BONILLA VAUGHAN LOCATION: [facility] : 54 UNIT #: [id number] AGE: [address]: Chris Naylor MD SEX: M ORDER DR: TD: 06/28/2017 02:37 JOB #: [id number] MEDICAL IMAGING REPORT Page 1 of 1 COPY
[2017-06-27 03:43] LABS: BASOPHIL# 0.1 X10e3 (0-0.3); BASOPHIL% 1.2 % (0-2.5); EOSINOPHIL# 0.2 X10e3 (0-0.7); EOSINOPHIL% 2.2 % (0.0-7.0); HEMATOCRIT 45.6 % (38.0-50.0); HEMOGLOBIN 14.5 gm/dL (13.0-16.0); LYMPHOCYTE# 1.9 X10e3 (1.0-3.5); LYMPHOCYTE% 25.9 % (17.0-45.0); MEAN CELL VOLUME 85.7 FL (83-96); MEAN CORPUSCULAR HEMOGLOBIN 27.3 PG (28-34); MEAN CORPUSCULAR HGB CONC 31.9 g/dL (30-36); MEAN PLATELET VOLUME 9.9 FL (6.5-11.5); MONOCYTE# 0.5 X10e3 (0-1.0); MONOCYTE% 6.8 % (3.0-12.0); NEUTROPHIL# 4.6 X10e3 (1.5-7.1); NEUTROPHIL% 63.9 % (40-75); PLATELET COUNT 140 X10e3 (140-420); RED BLOOD COUNT 5.32 X10e (3.90-5.60); WHITE BLOOD COUNT 7.2 X10e3 (4.0-10.5)
[2017-06-27 03:44] LABS: DIFF IND NO
[2017-06-27 04:11] LABS: CALCIUM SERUM 9.2 mg/dL (8.4-10.2); GLOM FILT RATE Estimated 91.8 mL/min (>60); POTASSIUM 4.6 mmol/L (3.5-5.1)
== END 2017-06-27 06:35 | disposition home or self-care (01) ==
LOC: CED 01:57
PROVIDERS: Emergency Medicine
DX: K29.71 Gastritis, unspecified, with bleeding (principal); I10 Essential (primary) hypertension; F01.50 Vascular dementia, unspecified severity, without behavioral disturbance, psychotic disturbance, mood disturbance, and anxiety; Z86.73 Personal history of transient ischemic attack (TIA), and cerebral infarction without residual deficits
CPT/HCPCS: 36415; 71010; 80048; 85025; 86850; 86900; 86901; 99284